=== PATIENT | male | born 1960 | race Caucasian/White ===

== ENCOUNTER 2018-06-07 20:07 | Emergency (ER) | payer MEDICAID ==
[~2018-06-07] VITALS: Ht 167.6 cm; Wt 83.5 kg
[2018-06-07 20:24] VITALS: Ht 167.6 cm; Wt 83.5 kg
[2018-06-07 21:08] LABS: UA SPECIFIC GRAVITY >=1.030 (1.005-1.035); microscopic required? YES; urine erythrocyte 3+ (NEGATIVE)
[2018-06-07 21:08] LABS: BASOPHIL % 0.5 % (0-2); PLATELET COUNT 200 x10^3mcL (130-400); RED CELL DISTRIBUTION WIDTH 13.5 % (11.5-14.5)
[2018-06-07 21:27] LABS: CALCIUM 9.2 mg/dL (8.5-10.1); CARBON DIOXIDE 29.7 mmol/L (21-32); CHLORIDE SERUM 103 mmol/L (98-107); CREATININE SERUM 1.1 mg/dL (0.7-1.3); GFR1 > 60 mL/min; GLUCOSE SERUM 125 mg/dL (74-106); POTASSIUM SERUM 3.7 mmol/L (3.5-5.1); SODIUM SERUM 139 mmol/L (136-145)
[2018-06-07 21:32] LABS: ALBUMIN 3.7 g/dL (3.4-5.0); ALKALINE PHOSPHATASE 65 U/L (46-116); ALT/SGPT 72 U/L (16-63); AST/SGOT 28 U/L (15-37); BILIRUBIN TOTAL 0.3 mg/dL (0.20-1.00); LIPASE 229 IU/L (73-393); TOTAL PROTEIN, SERUM 7.1 g/dL (6.4-8.2)
[2018-06-08 00:56] VITALS: BP 120/77
== END 2018-06-08 00:56 | disposition home or self-care (01) ==
LOC: ED 20:07
PROVIDERS: Emergency Medicine
DX: N13.2 Hydronephrosis with renal and ureteral calculous obstruction (principal); Z90.89 Acquired absence of other organs
CPT/HCPCS: J1885; J2405; J7030

== ENCOUNTER 2018-06-12 20:03 | Emergency (ER) | payer MEDICAID ==
[~2018-06-12] VITALS: Ht 157.5 cm; Wt 81.6 kg
[2018-06-12 20:28] VITALS: Ht 157.5 cm; Wt 81.6 kg
[2018-06-13 00:09] LABS: microscopic required? YES; urine erythrocyte 2+ (NEGATIVE)
[2018-06-13 00:20] VITALS: BP 123/84
== END 2018-06-13 00:20 | disposition left against medical advice (07) ==
LOC: ED 20:03
PROVIDERS: Emergency Medicine
DX: K59.00 Constipation, unspecified (principal); N13.2 Hydronephrosis with renal and ureteral calculous obstruction
CPT/HCPCS: J1885